=== PATIENT | male | born 1960 | race Caucasian/White ===

== ENCOUNTER 2024-11-22 20:19 | Emergency (ER) | payer OTHER, SELFPAY ==
[2024-11-22 20:21] VITALS: BP 165/94
[2024-11-22 20:41] LABS: % Basophils 0.6 % (0-2); % Eosinophils 2.3 % (0-6); % Immature Granulocytes 0.4 % (0-0.5); % Lymphocytes 17.3 % (20.5-51.1); % Monocytes 7.1 % (1.7-9.3); % Neutrophils 72.3 % (42.2-75.2); Absolute Basophils 0.1 10^3/uL (0-0.2); Absolute Eosinophils 0.3 10^3/uL (0-0.7); Absolute Immature Granulocytes 0.1 10^3/uL (0-0.05); Absolute Lymphocytes 2.1 10^3/uL (1.2-3.4); Absolute Monocytes 0.9 10^3/uL (0.1-0.6); Absolute Neutrophils 8.7 10^3/uL (1.4-6.5); Hematocrit 44.6 % (39.0-52.0); Hemoglobin 15.4 g/dL (13.0-18.0); Mean Corp Hgb Conc. 34.5 g/dL (33.0-37.0); Mean Corpuscular Hgb 30.2 pg (27.0-31.0); Mean Corpuscular Volume 87.5 fL (80.0-94.0); Mean Platelet Volume 10.4 fL (7.4-10.4); Nucleated Red Blood Cells % 0 % (-); Platelet Count 210 10^3/uL (130-400); Red Cell Dist. Width 12.6 % (11.5-14.5)
[2024-11-22 21:02] LABS: ALT (SGPT) 21 U/L (0-50); AST (SGOT) 25 U/L (17-59); Albumin 4.5 g/dl (3.5-5.0); Alkaline Phosphatase 64 U/L (38-126); Blood Urea Nitrogen 20 mg/dl (9-20); Calcium 9.8 mg/dl (8.4-10.2); Carbon Dioxide 25 mmol/L (22-30); Chloride 109 mmol/L (98-107); Glucose 100 mg/dl (70-99); Potassium 4.3 mmol/L (3.5-5.1); Sodium 142 mmol/L (135-145); Total Bilirubin 0.5 mg/dl (0.2-1.3); Total Protein 7.1 g/dl (6.3-8.2); eGFR > 60.00
[2024-11-23 00:50] VITALS: BMI 27.2
[2024-11-23 00:56] VITALS: BP 139/83
--- NOTE | 2024-11-23 01:37 | ED.GENMED ---
History of Present Illness
General
Chief Complaint: Abdominal Pain
Source: patient
Time Seen by Provider: 11/23/24 01:18
History of Present Illness
History of Present Illness:
63-year-old male presents to the emergency room complaining of left lower quadrant abdominal pain. Pain began within the past 24 hours. He has had at least 3 episodes of diverticulitis in the past. Patient is visiting the area from the
[place] region. 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 Patient denies any fever or chills. No significant diarrhea. He has not had any previous abdominal surgical procedures.
Phy Exam
Physical Exam
Physical Exam:
General: Awake, Alert, Oriented X3. No acute distress.
Vitals: unremarkable
Head: Atraumatic
Eyes: Pupils equal, EOMI
Throat: Airway intact, no exudates
Neck: Trachea midline
Lungs: Clear and equal b/l
Heart: Regular rate, no murmurs
Abd: Soft, mild to moderate tenderness palpation left lower quadrant, no rebound, No pulsatile mass
Neuro: Nonfocal
Skin: Warm, dry, no rash
Extremities: pulses equal b/l, no edema
Course
Orders/Labs/Results
Orders:
Orders
11/22/24 20:29
Complete Blood Count/With Diff Urgent
Comprehensive Metabolic Panel Urgent
11/23/24 01:37
Ciprofloxacin HCl [Cipro] 500 mg PO NOW STA
Ibuprofen [Motrin] 600 mg PO NOW STA
MetroNIDAZOLE [Flagyl] 500 mg PO NOW STA
Abnormal Lab Results
11/22/24
20:29
WBC 12.0 H 10^3/uL
(4.8-10.8)
Abs Immat Gran (auto) 0.1 H 10^3/uL
(0-0.05)
Absolute Neuts (auto) 8.7 H 10^3/uL
(1.4-6.5)
Absolute Monos (auto) 0.9 H 10^3/uL
(0.1-0.6)
Lymphocytes % 17.3 L %
(20.5-51.1)
Chloride 109 H mmol/L
(98-107)
Glucose 100 H mg/dl
(70-99)
11/22/24 20:29
11/22/24 20:29
Vital Signs
Initial and Last Documented VS:
Initial Vital Signs
Temp Pulse Resp BP Pulse Ox
97.6 F 71 18 165/94 99
11/22/24 20:21 11/22/24 20:21 11/22/24 20:21 11/22/24 20:21 11/22/24 20:21
Last Documented Vital Signs
Temp Pulse Resp BP Pulse Ox
98.0 F 60 16 139/83 97
11/23/24 00:56 11/23/24 00:56 11/23/24 00:56 11/23/24 00:56 11/23/24 00:56
MDM/Problems Addressed
Differential Diagnosis Includes:
Diverticulitis, colitis, UTI
MDM/Problems Addressed:
Patient presents with left lower quadrant abdominal pain which is reproducible on exam. This feels very much like previous episodes of diverticulitis. White count here is mildly elevated at 12. Remainder labs are reassuring. Will treat
empirically for diverticulitis.
*Pulse Oximetry
Patient hypoxic: no
*Critical Care Note
Total Time (30-74mins, 75-104mins- exclusive of procedures): Not Applicable
Data Reviewed
Further Testing Considered But Not Given:
Considered CT of the abdomen pelvis. However patient's presentation is quite classic for diverticulitis, he is quite stable and I feel comfortable treating him and avoiding further radiation exposure. He can follow-up with his GI docs back home.
ED Attending Note
-
Portions of this chart may have been created with voice recognition software.� Occasional wrong word or��sound alike� substitutions may have occurred due to the inherent limitations of voice recognition software.
Discharge Plan
Departure
Patient Disposition: Home (Routine Discharge)
Date of Disposition: 11/23/24
Time of Disposition: 01:38
Patient with high blood pressure during this ER visit?: Yes
Condition: Good
Discharge Problem:
Abdominal pain, Diverticulitis
Instructions: Diverticulitis (DC), Abdominal Pain
Prescriptions:
New
ciprofloxacin HCl [Cipro] 500 mg tablet
500 mg PO BID Qty: 14 0RF
metronidazole 500 mg tablet
500 mg PO TID Qty: 21 0RF
Referrals:
NONE,* [Family Provider, Internal Medicine]
Activity Restrictions/Additional Instructions:
Please follow up with your doctor at home. Return if your pain in not improving over the next 2 to 3 days or if your feel you are getting worse.
Interventions
Interventions:
*Risk Screen - Suicide Last Done: 11/22/24 20:21
*General Assessment Last Done: 11/22/24 20:21
*Neglect/Abuse Screening Last Done: 11/22/24 20:21
*ED- Fall Risk Assessment Last Done: 11/23/24 00:50
*ED COVID-19 Vaccine History Last Done: 11/23/24 00:50
*Nursing Disposition Last Done: 11/23/24 02:08
[facility] Assessment Last Done: 11/23/24 01:01
Discharge Date and Time
Discharge Date/Time: 11/23/24 02:08
Print Language: NIUEAN
[2024-11-23] MEDS: CIPRO 500 MG PO (01:44)
[2024-11-23] MEDS: FLAGYL 500 MG PO (01:44)
== END 2024-11-23 02:08 | disposition home or self-care (01) ==
LOC: EMR 20:19
PROVIDERS: Emergency Medicine; EMERGENCY PHYSICIAN Emergency Medicine
DX: K57.92 Diverticulitis of intestine, part unspecified, without perforation or abscess without bleeding (principal)
CPT/HCPCS: 99283; 80053; 85025